=== PATIENT | male | born 1940 | race Hispanic/Latino ===

== ENCOUNTER 2024-02-15 00:09 | Emergency (ER) | payer MEDICARE ==
[2024-02-15 00:16] LABS: #Basophils 0.1 thou/uL (0.0-0.2); #Eosinophils 0.3 thou/uL (0.0-0.7); #Lymphocytes 2.1 thou/uL (1.20-3.40); #Monocytes 0.5 thou/uL (0.11-0.59); #Neutrophils 14.5 thou/uL (1.40-6.50); %Basophils 0.5 % (0.0-1.0); %Eosinophils 1.5 % (0.0-10.0); %Lymphocytes 11.7 % (21.0-51.0); %Monocytes 2.9 % (0.0-10.0); %Neutrophils 83.3 % (42.0-75.0); Hematocrit 26.2 % (42.0-52.0); Hemoglobin 8.7 g/dL (14.0-18.0); Mean Corpuscular HGB CONC 33.2 g/dL (32.0-36.0); Mean Corpuscular Hemoglobin 33.2 pg (27.0-31.0); Mean Corpuscular Volume 99.9 fl (78.0-98.0); Mean Platelet Volume 7.7 fL (7.4-10.4); Platelet Count 283 10x3/uL (130-400); RBC Distribution Width 14.1 % (11.5-14.5); Red Blood Cell (RBC) Count 2.62 mill/uL (4.70-6.10); White Blood Cell (WBC) Count 17.4 10x3/uL (4.8-10.8)
[2024-02-15 00:26] LABS: INR-International Normal Ratio 1.5; Prothrombin Time 17.9 sec (12.0-14.7)
[2024-02-15 00:27] LABS: PTT 36.1 sec (22.9-36.1)
[2024-02-15 00:35] LABS: ALT (SGPT) 64 U/L (8-55); AST (SGOT) 58 U/L (5-34); Albumin 2.8 g/dL (3.4-4.8); Alkaline Phosphatase 179 U/L (40-110); Anion Gap 15 mmol/L (10-20); BUN (Urea Nitrogen) 39 mg/dL (8.4-25.7); Bilirubin, Total 0.5 mg/dL (0.2-1.2); Calc. Creatinine Clearance 0 mL/min (70-130); Calcium 7.9 mg/dL (7.8-10.44); Carbon Dioxide 17 mmol/L (23-31); Chloride 104 mmol/L (98-107); Estimated GFR 31; Globulin 3.4 g/dL (2.4-3.5); Glucose 323 mg/dL (83-110); Potassium 5.3 mmol/L (3.5-5.1); Protein, Total 6.2 g/dL (5.8-8.1); Sodium 131 mmol/L (136-145)
[2024-02-15 00:48] LABS: Lipase 106 U/L (8-78); Magnesium 2.3 mg/dL (1.6-2.6)
[2024-02-15 00:52] LABS: Base Excess-Venous -10.8 mmol/L (-2.0 to 3.0); Bicarbonate (HCO3v) 19.8 mmol/L (22.0-28.0); CO2 Tension (PvCO2) 71.2 mmHg (42.0-51.0); Chloride 102 mmol/L (98-107); Hemoglobin - Calc 9.7 g/dL (14.0-18.0); Potassium 5.6 mmol/L (3.5-5.1); Sodium 133 mmol/L (138-145); vO2 Saturation-calc 44.5 % (60.0-85.0)
[2024-02-15 00:53] LABS: Calcium, Ionized 1.18 mmol/L (1.15-1.33)
[2024-02-15 00:57] LABS: Bilirubin Negative (Negative); Blood, Urine Negative (Negative); Clarity Clear (Clear); Glucose, Urine (Dipstick) Negative (Negative); Ketone, Urine Negative (Negative); Leukocyte Negative (Negative); Nitrite Negative (Negative); Protein, Urine (Dipstick) Negative (Neg-Trace); Urobilinogen 0.2 mg/dL (Less than 2); pH, Urine 5.5 (5.0-9.0)
[2024-02-15] MEDS ORDERED: EPINEPHrine 1 MG/ML AMP ONE ×3 (00:57→01:29)
[2024-02-15 01:00] LABS: Bacteria/HPF None Seen HPF (None Seen); CAUTI Indications for Culture Dysuria,urgency,freq; RBC/HPF None Seen HPF (0-3); Squamous Epithelial None Seen HPF (0-3); WBC/HPF None Seen HPF (0-3)
[2024-02-15 01:02] LABS: Urine Culture Reflex No No
[2024-02-15 01:08] LABS: Amphetamine Not Detected (NotDetected); Barbiturates Screen Not Detected (NotDetected); Benzodiazepine Screen Not Detected (NotDetected); Cocaine Metabolite Screen Not Detected (NotDetected); Methadone Not Detected (NotDetected); Methamphetamine Not Detected (NotDetected); Opiate Screen Not Detected (NotDetected); Oxycodone Screen Not Detected (NotDetected); Phencyclidine (PCP) Not Detected (NotDetected); THC/Cannabinoid Screen Not Detected (NotDetected); Tricyclic Screen Not Detected (NotDetected)
[2024-02-15] MEDS ORDERED: Heparin 5,000 UNITS/ML VIAL ONE (01:10)
[2024-02-15 01:11] LABS: Critical Call Chem Troponin I NUR.LJH@0113; Troponin I 0.415 ng/mL (< 0.028)
[2024-02-15] MEDS ORDERED: Sodium Bicarb 50 MEQ/50 ML Abboject 8.4% SYRINGE ONE (01:29)
[2024-02-15] MEDS ORDERED: EPINEPHrine 1 MG/10 ML Abboject SYRINGE ONE (01:29)
== END 2024-02-15 03:30 | disposition expired ==
LOC: NAV ERS 00:09
DX: I46.9 Cardiac arrest, cause unspecified (principal); I11.0 Hypertensive heart disease with heart failure; I50.9 Heart failure, unspecified; Z87.891 Personal history of nicotine dependence; R07.9 Chest pain, unspecified
CPT/HCPCS: 36416; 51702; 71045; 80053; 80306; 80307; 81001; 82330; 82803; 83690; 83735; 83880; 84484; 85025; 85610; 85730; 92950; 93005; 94760; 99292; J0171; J1644